=== PATIENT | female | born 1940 | race Caucasian/White ===

== ENCOUNTER 2019-11-09 16:54 | Inpatient (IN) ==
[2019-11-09] MEDS ORDERED: 0.9 % Sodium Chloride 500 ML IVC ONE (17:04)
[2019-11-09 17:36] LABS: Hematocrit 25.5 % (35.3-44.9); Hemoglobin 8.5 g/dL (11.5-15.4); Mean Corpuscular HGB Conc 33.3 g/dL (31.6-35.5); Mean Platelet Volume 12.5 fL (9.4-12.4); Monocytes # 0.1 K/mcL (0.0-1.3); Platelet Count 105 K/mcL (140-400); Red Blood Count 2.93 M/mcL (3.82-4.97); Red Cell Distribution Width 15.8 % (11.5-14.5); White Blood Count 2.4 K/mcL (4.3-11.1)
[2019-11-09 17:39] LABS: Bilirubin,Urine Negative (Negative); Blood,Urine Large (Negative); Clarity,Urine Cloudy (Clear); Color,Urine Yellow (Yellow); Glucose,Urine (UA) Normal (Normal); Ketones,Urine Negative (Negative); Leukocyte Esterase,Urine Moderate (Negative); Nitrite,Urine Positive (Negative); PH,Urine >=9.0 pH Units (5.0-8.0); Protein,Urine >=300 mg/dL (Neg-Trace); Specific Gravity,Urine 1.015 (1.010-1.025); Urobilinogen,Urine Normal (Normal)
[2019-11-09 17:45] LABS: RBC,Urine 15-30 per hpf (0-3); WBC,Urine 15-30 per hpf (0-3)
[2019-11-09 17:46] LABS: Bacteria,Urine Many per hpf (None-Few); Mucus,Urine Few per lpf (None-Few); Squamous Epithelial Cell,Urine Moderate per hpf (None-Few)
[2019-11-09 17:54] LABS: Calcium 8.3 mg/dL (8.6-10.3); Potassium 4.4 mEq/L (3.5-5.1)
[2019-11-09] MEDS ORDERED: Ertapenem 1,000 MG in 0.9 % Sodium Chloride Mini Bag 100 ML IVPB ONE (17:56)
[2019-11-09 18:03] LABS: Anisocytosis 1+ (Not Present); Basophils # 0.1 K/mcL (0.0-0.2); Eosinophils # 0.1 K/mcL (0.0-0.6); Lymphocytes # 0.9 K/mcL (0.6-4.6); Neutrophils # 1.2 K/mcL (1.6-8.9)
[2019-11-09 18:04] LABS: Dohle Bodies Present (Not Present); Hypochromasia Present (Not Present); Plasma Cells Present (Not Present); Platelet Estimate Normal (Normal); Toxic Granulation Present (Not Present)
[2019-11-09] MEDS ORDERED: Acetaminophen 325 MG TABLET PO PRN (18:08)
[2019-11-09] MEDS ORDERED: Ondansetron 4 MG/2 ML VIAL IVP PRN (18:08)
[2019-11-09] MEDS ORDERED: Naloxone 0.4 MG/ML INJ IVP PRN (18:08)
[2019-11-09] MEDS ORDERED: *HR* Dextrose 50 % in Water (Vial) 50 ML VIAL IVP PRN (18:26)
[2019-11-09] MEDS ORDERED: D5% in Water 1,000 ML IVC PRN (18:26)
[2019-11-09] MEDS ORDERED: Ipratropium/Albuterol Neb 3 ML IH PRN (18:26)
[2019-11-09] MEDS ORDERED: Dextrose Gel 15 GM/37.5 ML TUBE PO PRN ×2 (18:26)
[2019-11-09 21:30] LABS: Estimated Average Glucose 154 mg/dl
[2019-11-09] MEDS: Insulin LISPRO 300 UNITS/3 ML VIAL SQ SCH (22:05)
[2019-11-10 05:57] LABS: Eosinophils % 0.5 %; Hematocrit 26.3 % (35.3-44.9); Hemoglobin 8.7 g/dL (11.5-15.4); Immature Granulocytes % 1.9 % (0-4); Lymphocytes % 48.6 %; Mean Corpuscular HGB Conc 33.1 g/dL (31.6-35.5); Mean Corpuscular Hemoglobin 28.7 pg (28.0-33.3); Mean Corpuscular Volume 86.8 fL (83.0-100.0); Mean Platelet Volume 13.5 fL (9.4-12.4); Monocytes # 0.1 K/mcL (0.0-1.3); Monocytes % 6.5 %; Neutrophils # 0.9 K/mcL (1.6-8.9); Platelet Count 106 K/mcL (140-400); Red Blood Count 3.03 M/mcL (3.82-4.97); Red Cell Distribution Width 15.8 % (11.5-14.5); Segmented Neutrophils % 42.5 %; White Blood Count 2.1 K/mcL (4.3-11.1)
[2019-11-10 06:17] LABS: Albumin 2.5 g/dL (3.5-5.7); Albumin/Globulin Ratio 0.6 (1.1-2.2); Bilirubin,Total 0.4 mg/dL (0.3-1.0); Calcium 8.4 mg/dL (8.6-10.3); Magnesium 1.7 mg/dL (1.6-2.6); Total Protein 6.5 g/dL (6.4-8.9)
[2019-11-10 07:12] LABS: Platelet Estimate Decreased (Normal)
[2019-11-10] MEDS: Insulin LISPRO 300 UNITS/3 ML VIAL SQ SCH ×4 (07:49→19:30)
[2019-11-10] MEDS ORDERED: Famotidine 20 MG TABLET PO PRN (15:16)
[2019-11-10] MEDS: Mirtazapine 15 MG TABLET PO SCH (19:29)
[2019-11-10] MEDS: Magnesium Oxide 400 MG TABLET PO SCH (19:30)
[2019-11-10] MEDS: Acyclovir 200 MG CAPSULE PO SCH (19:30)
[2019-11-11 06:50] LABS: Hematocrit 28.5 % (35.3-44.9); Hemoglobin 9.2 g/dL (11.5-15.4); Immature Granulocytes % 2.2 % (0-4); Lymphocytes # 1.1 K/mcL (0.6-4.6); Lymphocytes % 62.1 %; Mean Corpuscular HGB Conc 32.3 g/dL (31.6-35.5); Mean Corpuscular Hemoglobin 28.6 pg (28.0-33.3); Mean Corpuscular Volume 88.5 fL (83.0-100.0); Mean Platelet Volume 11.9 fL (9.4-12.4); Monocytes # 0.1 K/mcL (0.0-1.3); Monocytes % 5.5 %; Platelet Count 109 K/mcL (140-400); Red Blood Count 3.22 M/mcL (3.82-4.97); Red Cell Distribution Width 15.8 % (11.5-14.5); Segmented Neutrophils % 30.2 %; White Blood Count 1.8 K/mcL (4.3-11.1)
[2019-11-11 06:58] LABS: Neutrophils # 0.5 K/mcL (1.6-8.9)
[2019-11-11 07:07] LABS: Calcium 8.4 mg/dL (8.6-10.3); Potassium 4.2 mEq/L (3.5-5.1)
[2019-11-11] MEDS: Insulin LISPRO 300 UNITS/3 ML VIAL SQ SCH ×4 (07:25→20:30)
[2019-11-11] MEDS: Magnesium Oxide 400 MG TABLET PO SCH ×2 (07:42→20:30)
[2019-11-11] MEDS: allopurinoL 100 MG TABLET PO SCH (07:42)
[2019-11-11] MEDS: Acyclovir 200 MG CAPSULE PO SCH ×2 (07:42→20:30)
[2019-11-11] MEDS: Cyanocobalamin (B-12) 1,000 MCG TABLET PO SCH (07:42)
[2019-11-11 07:51] LABS: Platelet Estimate Decreased (Normal)
[2019-11-11] MEDS: 0.9 % Sodium Chloride 1,000 ML IVC SCH ×2 (12:52→21:59)
[2019-11-11] MEDS ORDERED: Famotidine 20 MG TABLET PO PRN (13:30)
[2019-11-11] MEDS: Mirtazapine 15 MG TABLET PO SCH (20:29)
[2019-11-12] MEDS: 0.9 % Sodium Chloride 1,000 ML IVC SCH ×2 (05:13→13:30)
[2019-11-12 06:40] VITALS: BP 132/72
[2019-11-12] MEDS: Insulin LISPRO 300 UNITS/3 ML VIAL SQ SCH ×3 (07:44→16:38)
[2019-11-12] MEDS: Cyanocobalamin (B-12) 1,000 MCG TABLET PO SCH (07:46)
[2019-11-12] MEDS: Magnesium Oxide 400 MG TABLET PO SCH (07:46)
[2019-11-12] MEDS: Acyclovir 200 MG CAPSULE PO SCH (07:46)
[2019-11-12] MEDS: allopurinoL 100 MG TABLET PO SCH (07:46)
[2019-11-12 08:03] LABS: Hematocrit 27.9 % (35.3-44.9); Mean Corpuscular HGB Conc 32.3 g/dL (31.6-35.5); Mean Corpuscular Hemoglobin 28.5 pg (28.0-33.3); Mean Corpuscular Volume 88.3 fL (83.0-100.0); Mean Platelet Volume 13.4 fL (9.4-12.4); Platelet Count 120 K/mcL (140-400); Red Blood Count 3.16 M/mcL (3.82-4.97); Red Cell Distribution Width 15.6 % (11.5-14.5); White Blood Count 1.6 K/mcL (4.3-11.1)
[2019-11-12 08:16] LABS: Calcium 7.9 mg/dL (8.6-10.3); Potassium 4.1 mEq/L (3.5-5.1)
[2019-11-12 09:06] LABS: Lymphocytes # 0.8 K/mcL (0.6-4.6); Neutrophils # 0.7 K/mcL (1.6-8.9)
[2019-11-12 09:07] LABS: Platelet Estimate Decreased (Normal); Reactive Lymphocytes Present (Not Present); Smudge Cells Present (Not Present)
== END 2019-11-12 17:34 | disposition home health service (06) | DRG 463 ==
LOC: INPPIK 16:54 → EMEROOPIK 16:54 → INPPIK 18:30
PROVIDERS: ADMIT Family Medicine; ATTEND Family Medicine